=== PATIENT | female | born 1980 | race Hispanic/Latino ===

== ENCOUNTER 2018-07-30 19:24 | Emergency (ER) | payer SELFPAY ==
[2018-07-30 19:44] VITALS: BP 106/61
--- NOTE | 2018-07-30 19:54 | Emergency Department Report ---
Blank Doc - Documentation Documentation: This is a 37-year-old female that presents with left leg redness and swelling. This initial assessment/diagnostic orders/clinical plan/treatment(s) is/are subject to change based on patient's health status, clinical progression and re- assessment by fellow clinical providers in the ED. Further treatment and workup at subsequent clinical providers discretion. Patient/guardians urged not to elope from the ED as their condition may be serious if not clinically assessed and managed. Initial orders include: 1- Patient sent to [facility] for further evaluation and treatment
[2018-07-30] MEDS ORDERED: XYLOCAINE 1% MPF 5 mL INFILTRATI ONE (22:48)
--- NOTE | 2018-07-30 22:48 | Emergency Department Report ---
Abscess Boil HPI - HPI Chief Complaint: Skin/Abscess/Foreign Body Stated Complaint: BITE ON LEFT ANKLE Time Seen by Provider: 07/30/18 19:49 Duration: 4 Days Location: Lower Extremity Severity: Moderate History: Yes Pain, No Fever, No Purulent Drainage, No Numbness, No Foreign Body, No Previous History, No Insect Bite HPI: This is a 37-year-old female who presents to the emergency room with swelling and pain to the left ankle for 4 days. Patient states he is warm to touch and painful. She thinks she possibly got bit by a spider but unsure. Patient denies drainage from the area, fever, numbness or tingling, or brake in skin. Home Medications: Previous Rx's Medication Instructions Recorded Last Taken Type Ibuprofen [Motrin 600 MG tab] 600 mg PO Q8H PRN #20 tablet 07/30/18 Unknown Rx Sulfamethoxazole/Trimethoprim 1 each PO BID #14 tablet 07/30/18 Unknown Rx [Bactrim DS TAB] Allergies/Adverse Reactions: Allergies Allergy/AdvReac Type Severity Reaction Status Date / Time No Known Allergies Allergy Verified 07/30/18 19:31 ED Review of Systems ROS: Stated complaint: BITE ON LEFT ANKLE Other details as noted in HPI Constitutional: denies: chills, fever Respiratory: denies: cough, shortness of breath, wheezing Cardiovascular: denies: chest pain, palpitations Gastrointestinal: denies: abdominal pain, nausea, diarrhea Skin: lesions (abscess to left lateral ankle). denies: rash Neurological: denies: headache, weakness, paresthesias Psychiatric: denies: anxiety, depression ED Past Medical Hx - Past Medical History Previous Medical History?: No - Surgical History Past Surgical History?: Yes Additional Surgical History: - Social History Smoking Status: Never Smoker Substance Use Type: None - Medications Home Medications: Home Medications Medication Instructions Recorded Confirmed Last Taken Type Ibuprofen [Motrin 600 MG tab] 600 mg PO Q8H PRN #20 tablet 07/30/18 Unknown Rx Sulfamethoxazole/Trimethoprim 1 each PO BID #14 tablet 07/30/18 Unknown Rx [Bactrim DS TAB] ED Abscess Boil Physical Exam - Exam General: Vital signs noted. No distress. Alert and acting appropriately. Front/Back of Body, Lg (Color): 1 - 2 cm fluctuant nodule to the left lateral tibia-fibula, tenderness, no drainage, surrounding cellulitis. Size: 2 cm Exam: Yes Tenderness, Yes Fluctuance, Yes Surrounding Cellulites/Erythema, Yes Normal Neurologic Exam, Yes Normal Circulation, No Lymphangitis, No Crepitation, No Heart Murmur I & D Note - I & D Note I & D Note: The area was prepared and draped in the usual, sterile manner. The site was anesthetized with 1% lidocaine without epinephrine. A linear incision along the local skin lines was made and the purulent material expressed. The abcess was explored thoroughly and sequestered pockets were opened. Bleeding was minimal. Packing: idodoform. Followup: The patient tolerated the procedure well without complications. Standard post-procedure care was explained and return precautions are given. ED Course Vital Signs 07/30/18 07/30/18 19:40 19:42 Temperature 98.7 F 98.7 F Pulse Rate 83 84 Respiratory 18 18 Rate Blood Pressure 106/61 106/61 O2 Sat by Pulse 99 99 Oximetry Critical care attestation.: If time is entered above; I have spent that time in minutes in the direct care of this critically ill patient, excluding procedure time. ED Medical Decision Making - Medical Decision Making Patient is stable and examined by me. Physical assessment of 2 cm fluctuance nodule to the left lateral tibia-fibula. No acute signs of distress noted. Given tetanus vaccine while in ER. I&D refer to note. Discussed plan to start bactrim DS and ibuprofen with patient. Educated patient on follow up plan to have packing removed and wound reassessed in 2-3 days. Patient agrees to ED plan of care. Discharged home and follow up with PCP in 2-3 days. ED Disposition Clinical Impression: Abscess of ankle Disposition: - TO HOME OR SELFCARE Is pt being admited?: No Does the pt Need Aspirin: No Condition: Stable Instructions: Abscess (ED), Abscess Incision and Drainage (ED) Additional Instructions: Keep packing in place for 2-3 days. Return to ER or f/u with primary care doctor to have packing removed and wound reassessed. Complete full round of bactrim DS antibiotic as prescribed. Follow up with primary care doctor or ER in 2-3 days. Return to ER if foul smelling discharge, swelling, or severe pain to wound. Prescriptions: Sulfamethoxazole/Trimethoprim [Bactrim DS TAB] 1 each PO BID #14 tablet Ibuprofen [Motrin 600 MG tab] 600 mg PO Q8H PRN #20 tablet PRN Reason: Pain Referrals: [facility] [Outside] - 3-5 Days [facility] [Outside] - 3-5 Days [facility] [Provider Group] - 3-5 Days Forms: Work/School Release Form(ED) Time of Disposition: 23:39
[2018-07-30] MEDS ORDERED: BOOSTRIX IM ONE (23:35)
== END 2018-07-30 23:48 | disposition home or self-care (01) ==
LOC: ED 19:24
DX: L02.416 Cutaneous abscess of left lower limb (principal)
CPT/HCPCS: 90471; 90715

== ENCOUNTER 2018-10-23 19:16 | Emergency (ER) | payer SELFPAY ==
--- NOTE | 2018-10-23 19:30 | Emergency Department Report ---
Chief Complaint: Sore Throat Stated Complaint: THROAT PAIN Time Seen by Provider: 10/23/18 19:26 - HPI History of Present Illness: This is a 38 y.o. F. that presents to the ER with sore throat and white exudates for 2 days. Patient states her daughter was diagnosed with strep throat 2-3 weeks ago. Patient taking OTC medication with no improvement of symptoms. LMP 09/26/18. Patient also reports lightheadedness for a few days. States sensation is worse after bending. Reports history of anemia and symptoms are similar to the last time. - Exam Vital Signs: Vital Signs 10/23/18 19:26 Temperature 99.0 F Pulse Rate 100 H Respiratory 18 Rate Blood Pressure 114/60 O2 Sat by Pulse 98 Oximetry MSE screening note: Focused history and physical exam performed. Due to findings the following was ordered: Rapid strep and CBC ED Disposition for MSE Condition: Stable
[2018-10-23 20:11] LABS: Hematocrit 29.7 % (30.3-42.9); Hemoglobin 9.4 gm/dl (10.1-14.3); Mean Corpuscular HGB Conc 32 % (30-34); Platelet Count 313 K/mm3 (140-440); Red Blood Count 4.57 M/mm3 (3.65-5.03); Red Cell Distribution Width 18.1 % (13.2-15.2)
[2018-10-23 20:44] LABS: Mean Corpuscular Volume 65 fl (79-97)
[2018-10-23 22:03] LABS: Basophils % (Manual) 0 % (0.0-1.8); Hypochromasia 2+; Total Cells Counted 100
--- NOTE | 2018-10-23 22:43 | Emergency Department Report ---
ED General Adult HPI - General Chief complaint: Sore Throat Stated complaint: THROAT PAIN Time Seen by Provider: 10/23/18 19:26 Source: patient Mode of arrival: Ambulatory Limitations: No Limitations - History of Present Illness Initial comments: Patient is a 38-year-old white female who presents to the ED with complaint of acute onset persistent severe sore throat with dysphagia for the last 2 days. Patient states that she has also been feeling lightheaded intermittently. Patient states that her daughter was diagnosed with acute streptococcal pha ryngitis about a week or so ago and suspect that she may have acquired the same from her. Patient denies dizziness, fever, chills, cough, nasal and sinus congestion, diffuse body aches and pains, chest pain, abdominal pain, nausea and vomiting or diarrhea and headache. MD Complaint: Sore throat -: Sudden, days(s) (2) Location: mouth Radiation: non-radiation Severity scale (0 -10): 5 Quality: burning, aching, sharp Consistency: constant Improves with: none Worsens with: none Associated Symptoms: denies other symptoms. denies: confusion, chest pain, cough, diaphoresis, fever/chills, headaches, loss of appetite, malaise, nausea/vomiting, seizure, shortness of breath, syncope Treatments Prior to Arrival: none - Related Data Previous Rx's Medication Instructions Recorded Last Taken Type Ibuprofen [Motrin 600 MG tab] 600 mg PO Q8H PRN #20 tablet 07/30/18 Unknown Rx Sulfamethoxazole/Trimethoprim 1 each PO BID #14 tablet 07/30/18 Unknown Rx [Bactrim DS TAB] Ibuprofen [Motrin] 600 mg PO Q8H PRN #20 tablet 10/23/18 Unknown Rx Lidocaine Viscous 2% 10 ml PO Q6H PRN #120 ml 10/23/18 Unknown Rx Penicillin V Potassium 500 mg PO Q6H #40 tablet 10/23/18 Unknown Rx Allergies Allergy/AdvReac Type Severity Reaction Status Date / Time No Known Allergies Allergy Verified 10/23/18 19:28 ED Review of Systems ROS: Stated complaint: THROAT PAIN Other details as noted in HPI Constitutional: malaise. denies: chills, fever Eyes: denies: eye pain, eye discharge, vision change ENT: throat pain, congestion. denies: ear pain, dental pain, hearing loss Respiratory: denies: cough, shortness of breath, wheezing Cardiovascular: denies: chest pain, palpitations Endocrine: no symptoms reported Gastrointestinal: denies: abdominal pain, nausea, diarrhea Genitourinary: denies: urgency, dysuria, discharge Musculoskeletal: denies: back pain, joint swelling, arthralgia Skin: denies: rash, lesions Neurological: denies: headache, weakness, paresthesias Psychiatric: denies: anxiety, depression Hematological/Lymphatic: denies: easy bleeding, easy bruising ED Past Medical Hx - Surgical History Additional Surgical History: - Social History Smoking Status: Never Smoker Substance Use Type: None - Medications Home Medications: Home Medications Medication Instructions Recorded Confirmed Last Taken Type Ibuprofen [Motrin 600 MG tab] 600 mg PO Q8H PRN #20 tablet 07/30/18 Unknown Rx Sulfamethoxazole/Trimethoprim 1 each PO BID #14 tablet 07/30/18 Unknown Rx [Bactrim DS TAB] Ibuprofen [Motrin] 600 mg PO Q8H PRN #20 tablet 10/23/18 Unknown Rx Lidocaine Viscous 2% 10 ml PO Q6H PRN #120 ml 10/23/18 Unknown Rx Penicillin V Potassium 500 mg PO Q6H #40 tablet 10/23/18 Unknown Rx ED Physical Exam - General Limitations: No Limitations General appearance: alert, in no apparent distress - Head Head exam: Present: atraumatic, normocephalic, normal inspection - Eye Eye exam: Present: normal appearance, PERRL, EOMI Pupils: Present: normal accommodation - ENT ENT exam: Present: normal exam, mucous membranes moist, TM's normal bilaterally, normal external ear exam, other (erythematous oropharynx and tonsils with white exudates) - Neck Neck exam: Present: normal inspection, full ROM, lymphadenopathy. Absent: tenderness - Respiratory Respiratory exam: Present: normal lung sounds bilaterally. Absent: respiratory distress, wheezes, stridor, chest wall tenderness, accessory muscle use, decreased breath sounds - Cardiovascular Cardiovascular Exam: Present: regular rate, normal rhythm, normal heart sounds. Absent: systolic murmur, diastolic murmur, rubs, gallop - GI/Abdominal GI/Abdominal exam: Present: soft, normal bowel sounds. Absent: rebound, hyperactive bowel sounds, hypoactive bowel sounds, organomegaly - Extremities Exam Extremities exam: Present: normal inspection, full ROM, normal capillary refill - Back Exam Back exam: Present: normal inspection, full ROM. Absent: CVA tenderness (L), muscle spasm, vertebral tenderness - Neurological Exam Neurological exam: Present: alert, oriented X3, CN II-XII intact, normal gait, reflexes normal - Psychiatric Psychiatric exam: Present: normal affect, normal mood - Skin Skin exam: Present: warm, dry, intact, normal color. Absent: rash ED Course Vital Signs 10/23/18 19:26 Temperature 99.0 F Pulse Rate 100 H Respiratory 18 Rate Blood Pressure 114/60 O2 Sat by Pulse 98 Oximetry - Reevaluation(s) Reevaluation #1: 10/24/18 01:33 This is a 38-year-old female who presented to the ED with sore throat and lightheadedness. In the ED, patient is alert and oriented on today and is not in distress. Patient was treated for pain and rapid strep test was negative. Lab test results were also reviewed and unremarkable. Patient was empirically treated for a suspected acute pharyngitis due to streptococcus and given a prescription of antibiotics and pain medications and patient was advised to follow-up with her primary care physician in 7-10 days for reevaluation. Patient was advised to return to the ED immediately if symptoms get worse. ED Medical Decision Making - Lab Data Result diagrams: 10/23/18 19:59 - Medical Decision Making This is a 38-year-old female who presented to the ED with sore throat and lightheadedness. In the ED, patient is alert and oriented on today and is not in distress. Patient was treated for pain and rapid strep test was negative. Lab test results were also reviewed and unremarkable. Patient was empirically treated for a suspected acute pharyngitis due to streptococcus and given a prescription of antibiotics and pain medications and patient was advised to follow-up with her primary care physician in 7-10 days for reevaluation. Patient was advised to return to the ED immediately if symptoms get worse. - Differential Diagnosis Strep pharyngitis; Tonsillitis; acute URI; Lightheadedness Critical care attestation.: If time is entered above; I have spent that time in minutes in the direct care of this critically ill patient, excluding procedure time. ED Disposition Clinical Impression: Acute pharyngitis Qualifiers: Pharyngitis/tonsillitis etiology: unspecified etiology Qualified Code(s): J02.9 - Acute pharyngitis, unspecified Disposition: DC- TO HOME OR SELFCARE Is pt being admited?: No Does the pt Need Aspirin: No Condition: Stable Instructions: Pharyngitis (ED), Tonsillitis (ED) Additional Instructions: Take medication with food, drink plenty of fluids and follow up with your primary care physician in 7-10 days for reevaluation. Return to the ED imm ediately if symptoms get worse. Prescriptions: Lidocaine Viscous 2% 10 ml PO Q6H PRN #120 ml PRN Reason: Pain , Severe (7-10) Ibuprofen [Motrin] 600 mg PO Q8H PRN #20 tablet PRN Reason: Pain Penicillin V Potassium 500 mg PO Q6H #40 tablet Referrals: PRIMARY CARE, [Primary Care Provider] - 3-5 Days Forms: Work/School Release Form(ED) Time of Disposition: 22:41 Print Language: GRENADIAN
[2018-10-24 02:06] VITALS: BP 120/66
== END 2018-10-23 23:10 | disposition home or self-care (01) ==
LOC: ED 19:16
DX: J02.9 Acute pharyngitis, unspecified (principal)
CPT/HCPCS: 36415; 85007; 85025; 87116; 87430

== ENCOUNTER 2019-02-28 08:50 | Emergency (ER) | payer SELFPAY ==
[2019-02-28 08:59] VITALS: BP 126/68
[2019-02-28 10:30] LABS: Hemoglobin 8.6 gm/dl (10.1-14.3); Mean Corpuscular HGB Conc 31 % (30-34); Platelet Count 419 K/mm3 (140-440); Red Cell Distribution Width 19.9 % (13.2-15.2)
[2019-02-28 10:31] LABS: Mean Corpuscular Volume 64 fl (79-97)
[2019-02-28 10:44] LABS: BUN/Creatinine Ratio 35; Blood Urea Nitrogen 14 mg/dL (7-17); Calcium 8.9 mg/dL (8.4-10.2); Hemolysis Index 1
[2019-02-28 11:42] LABS: Total Cells Counted 100
[2019-02-28 11:44] LABS: Basophils % (Manual) 0 % (0.0-1.8); Hypochromasia 2+; Ovalocytes Few; Tear Drop Cells Few
[2019-02-28 11:45] LABS: Platelet Estimate Consistent w Auto
--- NOTE | 2019-02-28 13:50 | Emergency Department Report ---
ED General Adult HPI - General Chief complaint: Dizziness Stated complaint: PASSED OUT/DIZZY/LIGHTHEADED Time Seen by Provider: 02/28/19 13:45 Source: patient Mode of arrival: Ambulatory Limitations: No Limitations - History of Present Illness Initial comments: This is a 38-year-old female who admits to feeling weak and somewhat chronically. She occasionally feels lightheaded did not pass out. She admits that this has been going on for quite some time. She has previously been told she is anemic. She states she is having her menses now which is on time. She states that she does have heavy periods but has not followed up with a heel trimmer or primary care doctor for quite some time. She is not feeling lightheaded at the time of my encounter. She denies headache now. She states that she had a bifrontal headache which was similar to previous headaches. She describes it as mild in intensity. She states that she had a negative CT scan of her head in 2009. She denies photophobia and neck pain or any other discomfort. She states that she would like a note for work tomorrow. -: month(s) Location: head (occasional headache) Quality: aching Consistency: intermittent Improves with: none Worsens with: none Associated Symptoms: denies other symptoms - Related Data Previous Rx's Medication Instructions Recorded Last Taken Type Ibuprofen [Motrin 600 MG tab] 600 mg PO Q8H PRN #20 tablet 07/30/18 Unknown Rx Sulfamethoxazole/Trimethoprim 1 each PO BID #14 tablet 07/30/18 Unknown Rx [Bactrim DS TAB] Ibuprofen [Motrin] 600 mg PO Q8H PRN #20 tablet 10/23/18 Unknown Rx Lidocaine Viscous 2% 10 ml PO Q6H PRN #120 ml 10/23/18 Unknown Rx Penicillin V Potassium 500 mg PO Q6H #40 tablet 10/23/18 Unknown Rx Butalb/Acetaminophen/Caffeine 1 cap PO Q6HR PRN #7 cap 02/28/19 Unknown Rx [Fioricet 50-300-40 mg CAP] Ferrous Gluconate [Ferrous 324 mg PO TID #30 tablet 02/28/19 Unknown Rx Gluconate 324 MG] Allergies Allergy/AdvReac Type Severity Reaction Status Date / Time No Known Allergies Allergy Verified 10/23/18 19:28 ED Review of Systems ROS: Stated complaint: PASSED OUT/DIZZY/LIGHTHEADED Other details as noted in HPI Constitutional: weakness. denies: chills, fever Eyes: denies: eye pain, eye discharge, vision change ENT: denies: ear pain, throat pain Respiratory: denies: cough, shortness of breath, wheezing Cardiovascular: denies: chest pain, palpitations Endocrine: no symptoms reported Gastrointestinal: denies: abdominal pain, nausea, diarrhea Genitourinary: denies: urgency, dysuria, discharge Musculoskeletal: denies: back pain, joint swelling, arthralgia Skin: denies: rash, lesions Neurological: headache (mild and intermittent). denies: weakness, paresthesias Psychiatric: denies: anxiety, depression Hematological/Lymphatic: denies: easy bleeding, easy bruising ED Past Medical Hx - Past Medical History Previous Medical History?: Yes Additional medical history: anemia - Surgical History Additional Surgical History: - Social History Smoking Status: Never Smoker Substance Use Type: None - Medications Home Medications: Home Medications Medication Instructions Recorded Confirmed Last Taken Type Ibuprofen [Motrin 600 MG tab] 600 mg PO Q8H PRN #20 tablet 07/30/18 Unknown Rx Sulfamethoxazole/Trimethoprim 1 each PO BID #14 tablet 07/30/18 Unknown Rx [Bactrim DS TAB] Ibuprofen [Motrin] 600 mg PO Q8H PRN #20 tablet 10/23/18 Unknown Rx Lidocaine Viscous 2% 10 ml PO Q6H PRN #120 ml 10/23/18 Unknown Rx Penicillin V Potassium 500 mg PO Q6H #40 tablet 10/23/18 Unknown Rx Butalb/Acetaminophen/Caffeine 1 cap PO Q6HR PRN #7 cap 02/28/19 Unknown Rx [Fioricet 50-300-40 mg CAP] Ferrous Gluconate [Ferrous 324 mg PO TID #30 tablet 02/28/19 Unknown Rx Gluconate 324 MG] ED Physical Exam - General Limitations: No Limitations General appearance: alert, in no apparent distress - Head Head exam: Present: atraumatic, normocephalic - Eye Eye exam: Present: normal appearance, PERRL, EOMI. Absent: scleral icterus - ENT ENT exam: Present: mucous membranes moist - Neck Neck exam: Present: normal inspection. Absent: tenderness, meningismus - Respiratory Respiratory exam: Present: normal lung sounds bilaterally. Absent: respiratory distress - Cardiovascular Cardiovascular Exam: Present: regular rate, normal rhythm. Absent: systolic murmur, diastolic murmur, rubs, gallop - GI/Abdominal GI/Abdominal exam: Present: soft, normal bowel sounds. Absent: distended, tenderness, guarding, rebound, rigid - Extremities Exam Extremities exam: Present: normal inspection - Back Exam Back exam: Present: normal inspection - Neurological Exam Neurological exam: Present: alert, oriented X3, CN II-XII intact, normal gait. Absent: motor sensory deficit - Psychiatric Psychiatric exam: Present: normal affect, normal mood - Skin Skin exam: Present: warm, dry, intact, normal color. Absent: rash ED Course Vital Signs 02/28/19 02/28/19 02/28/19 08:58 09:26 13:24 Temperature 98.3 F 98.3 F Pulse Rate 78 78 Respiratory 18 16 15 Rate Blood Pressure 126/68 Blood Pressure 126/68 [Right] O2 Sat by Pulse 100 100 Oximetry ED Medical Decision Making - Lab Data Result diagrams: 02/28/19 10:11 02/28/19 10:11 Laboratory Results - last 24 hr 02/28/19 02/28/19 02/28/19 10:11 10:11 10:11 WBC 5.1 RBC 4.40 Hgb 8.6 L Hct 28.0 L MCV 64 L MCH 20 L MCHC 31 RDW 19.9 H Plt Count 419 Lymph % (Auto) House Shorer [place] % (Auto) House Shorer Eos % (Auto) House Shorer Baso % (Auto) House Shorer Lymph # House Shorer [place] # House Shorer Eos # House Shorer Baso # House Shorer Add Manual Diff Complete Total Counted 100 Seg Neutrophils % House Shorer Seg Neuts % (Manual) 72.0 H Band Neutrophils % 0 Lymphocytes % (Manual) 20.0 Reactive Lymphs % (Man) 0 Monocytes % (Manual) 6.0 Eosinophils % (Manual) 2.0 Basophils % (Manual) 0 Metamyelocytes % 0 Myelocytes % 0 Promyelocytes % 0 Blast Cells % 0 Nucleated RBC % Not Reportable Seg Neutrophils # House Shorer Seg Neutrophils # Man 3.7 Band Neutrophils # 0.0 Lymphocytes # (Manual) 1.0 L Abs React Lymphs (Man) 0.0 Monocytes # (Manual) 0.3 Eosinophils # (Manual) 0.1 Basophils # (Manual) 0.0 Metamyelocytes # 0.0 Myelocytes # 0.0 Promyelocytes # 0.0 Blast Cells # 0.0 WBC Morphology Not Reportable Hypersegmented Neuts Not Reportable Hyposegmented Neuts Not Reportable Hypogranular Neuts Not Reportable Smudge Cells Not Reportable Toxic Granulation Not Reportable Toxic Vacuolation Not Reportable Dohle Bodies Not Reportable Pelger-Huet Anomaly Not Reportable Bart Rods Not Reportable Platelet Estimate Consistent w auto Clumped Platelets Not Reportable Plt Clumps, EDTA Not Reportable Large Platelets Not Reportable Giant Platelets Not Reportable Platelet Satelliting Not Reportable Plt Morphology Comment Not Reportable RBC Morphology Not Reportable Dimorphic RBCs Not Reportable Polychromasia Not Reportable Hypochromasia 2+ Poikilocytosis Not Reportable Anisocytosis Not Reportable Microcytosis 2+ Macrocytosis Not Reportable Spherocytes Not Reportable Pappenheimer Bodies Not Reportable Sickle Cells Not Reportable Target Cells Not Reportable Tear Drop Cells Few Ovalocytes Few Helmet Cells Not Reportable [employer] Bodies Not Reportable [employer] Rings Not Reportable Emmanuel Cells Not Reportable Bite Cells Not Reportable Crenated Cell Not Reportable Elliptocytes Few Acanthocytes (Spur) Not Reportable Rouleaux Not Reportable Hemoglobin C Crystals Not Reportable Schistocytes Not Reportable Malaria parasites Not Reportable Zuhair Bodies Not Reportable Hem Pathologist Commnt No Sodium 137 Potassium 4.1 Chloride 103.9 Carbon Dioxide 20 L Anion Gap 17 BUN 14 Creatinine 0.4 L Estimated GFR > 60 BUN/Creatinine Ratio 35 Glucose 91 Calcium 8.9 Troponin T < 0.010 HCG, Qual Negative Critical care attestation.: If time is entered above; I have spent that time in minutes in the direct care of this critically ill patient, excluding procedure time. ED Disposition Clinical Impression: Iron deficiency anemia Qualifiers: Iron deficiency anemia type: unspecified iron deficiency Qualified Code(s): D50.9 - Iron deficiency anemia, unspecified Cephalalgia Qualifiers: Headache type: tension-type Headache chronicity pattern: episodic headache Intractability: not intractable Qualified Code(s): G44.219 - Episodic tension- type headache, not intractable Disposition: DC-01 TO HOME OR SELFCARE Is pt being admited?: No Does the pt Need Aspirin: No Condition: Stable Instructions: Tension Headache (ED), Iron Deficiency Anemia (ED) Additional Instructions: Recommend further evaluation in the primary care setting. Rx as needed for headache and iron supplement for urinary anemia. Return any significant h eadache pain or headache with acute associated symptoms as needed. Prescriptions: Ferrous Gluconate [Ferrous Gluconate 324 MG] 324 mg PO TID #30 tablet Butalb/Acetaminophen/Caffeine [Fioricet 50-300-40 mg CAP] 1 cap PO Q6HR PRN #7 cap PRN Reason: Headache Referrals: PRIMARY CARE, [Primary Care Provider] - 3-5 Days Forms: Work/School Release Form(ED) Time of Disposition: 14:12
== END 2019-02-28 14:28 | disposition home or self-care (01) ==
LOC: ED 08:50
DX: D50.9 Iron deficiency anemia, unspecified (principal); R51 Headache
CPT/HCPCS: 36415; 80048; 84484; 84703; 85007; 85025; 93005; 99283